=== PATIENT | female | born 1945 | race Caucasian/White ===

== ENCOUNTER 2021-11-09 15:48 | Inpatient (IN) | payer MEDICARE ==
[~2021-11-09] VITALS: Ht 170.2 cm; Wt 55.1 kg
[2021-11-09] MEDS ORDERED: DILTIAZEM 50MG VIAL IV ONE (16:23)
[2021-11-09 16:24] LABS: BASOPHILS % (AUTO) 0.2 % (0.0-5.0); EOSINOPHILS % (AUTO) 0.3 % (0.0-8.0); HEMATOCRIT 31.3 % (36-48); LYMPHOCYTES % (AUTO) 7.8 % (21.0-51.0); MEAN CORPUSCULAR HEMOGLOBIN 26.9 pg (27.0-33.0); MEAN CORPUSCULAR HGB CONC 31.9 g/dL (32.0-36.0); MEAN CORPUSCULAR VOLUME 84.1 fL (79-99); PLATELET COUNT (AUTO) 366 K/uL (130-400); RED BLOOD CELL COUNT(AUTO) 3.72 MIL/uL (4.00-5.50); RED CELL DISTRIBUTION WIDTH 17.1 % (11.0-15.5); WHITE BLOOD COUNT (AUTO) 11.8 K/uL (4.8-10.8)
[2021-11-09] MEDS ORDERED: DILTIAZEM 125MG+100 ML NS 125 ML IV PRN (16:30)
[2021-11-09] MEDS ORDERED: DILTIAZEM 25MG INJ IVP ONE (16:30)
[2021-11-09] MEDS ORDERED: DILTIAZEM 25MG INJ IVP PRN (16:30)
[2021-11-09 16:44] LABS: CREATININE 1.2 mg/dL (0.5-1.5); POTASSIUM 4.3 mmol/L (3.5-5.1)
[2021-11-09 16:53] LABS: ALBUMIN 2.3 g/dL (3.5-5.0); BILIRUBIN,TOTAL 0.5 mg/dL (0.2-1.0); TOTAL PROTEIN, SERUM 8.9 g/dL (6.0-8.3)
[2021-11-09] MEDS ORDERED: 0.9%NACL 1000ML 1,000 ML IV ONE (17:00)
[2021-11-09] MEDS ORDERED: ASPIRIN 325MG EC TAB PO ONE (17:30)
[2021-11-09 17:35] LABS: APPEARANCE,URINE Cloudy (CLEAR); BILIRUBIN,URINE Negative (NEGATIVE); COLOR,URINE Dark Yellow (YELLOW); GLUCOSE, URINE (UA) Negative (NEGATIVE); KETONES,URINE Negative (NEGATIVE); LEUKOCYTE ESTERASE ,URINE Moderate (NEGATIVE); NITRATE,URINE Positive (NEGATIVE); OCCULT BLOOD,URINE Negative (NEGATIVE); PH,URINE 5.5 (5.0-8.0); PROTEIN,URINE POS 1+ mg/dL (NEGATIVE)
[2021-11-09] MEDS ORDERED: CEFTRIAXONE 1G VIAL IVP SCH (18:00)
[2021-11-09] MEDS: 0.9% NACL 500ML IV.SOLN 500 ML IV SCH (18:02)
[2021-11-09 18:43] LABS: RBC,URINE 0-1 /HPF (0-1)
[2021-11-09 18:44] LABS: BACTERIA,URINE Moderate /HPF (None Seen); SQUAMOUS EPITHELIAL CELL,UR Few /HPF (0-2)
[2021-11-09] MEDS ORDERED: THIAMINE HCL 100 MG/ML 2ML VIAL IVP SCH (19:00)
[2021-11-09] MEDS ORDERED: 0.9%NACL 1000ML 1,000 ML IV SCH (19:30)
[2021-11-09] MEDS: BUDESONIDE 0.5 MG/2 ML INH IH SCH (19:49)
[2021-11-09] MEDS: IPRATROPIUM 0.5 MG/2.5 ML INH IH PRN (19:49)
[2021-11-09] MEDS ORDERED: 0.9%NACL 50ML 50 ML IV ONE (19:58)
[2021-11-09 19:59] LABS: AMPHET/METH SCREEN,URINE NEGATIVE (NEGATIVE); BARBITURATE SCREEN, URINE NEGATIVE (NEGATIVE); BENZODIAZEPINES SCREEN,URINE NEGATIVE (NEGATIVE); CANNABINOID SCREEN,URINE NEGATIVE (NEGATIVE); COCAINE SCREEN,URINE NEGATIVE (NEGATIVE); OPIATE SCREEN,URINE NEGATIVE (NEGATIVE); PHENCYCLIDINE SCREEN,URINE NEGATIVE (NEGATIVE)
[2021-11-09] MEDS: ZOSYN 3.375GM +NS 50ML IV SCH (19:59)
[2021-11-09] MEDS ORDERED: VANCOMYCIN PROTOCOL PER PHARMACY IV SCH (20:00)
[2021-11-09] MEDS ORDERED: DIGOXIN 250 MCG/ML 2ML AMP ONE (20:47)
[2021-11-09] MEDS ORDERED: METOPROLOL TARTRATE 25 MG TAB ONE (20:47)
[2021-11-09] MEDS ORDERED: METOPROLOL TARTRATE 25 MG TAB PO SCH (21:00)
[2021-11-09] MEDS ORDERED: DIGOXIN 250 MCG/ML 2ML AMP IV SCH (22:00)
[2021-11-09] MEDS ORDERED: PANTOPRAZOLE 40 MG TAB DR PO SCH (22:00)
[2021-11-09] MEDS ORDERED: SODIUM CHLORIDE 3% FOR INHALATION 4 ML/AMP VIAL.NEB IH ONE (22:08)
[2021-11-09] MEDS ORDERED: 0.9% NACL 250ML 250 ML ONE (22:21)
[2021-11-09] MEDS: DOXYCYCLINE HYCLATE 100 MG TABLET PO SCH (22:24)
[2021-11-09] MEDS ORDERED: VANCOMYCIN 1G/250ML KIT 250 ML IV ONE (22:30)
[2021-11-10] VITALS (33 sets, daily range): BP systolic 47–141; BP diastolic 25–80
[2021-11-10] MEDS: 0.9% NACL 500ML IV.SOLN 500 ML IV SCH (02:25)
[2021-11-10] MEDS ORDERED: 0.9%NACL 50ML 50 ML IV ONE (03:11)
[2021-11-10] MEDS: ZOSYN 3.375GM +NS 50ML IV SCH ×3 (03:12→18:07)
[2021-11-10] MEDS ORDERED: DOBUTAMINE 250MG/D5 250ML 250 ML IV PRN (06:00)
[2021-11-10] MEDS ORDERED: NOREPINEPHRIN 4MG/NS 250ML 250 ML IV ONE (06:14)
[2021-11-10 06:26] LABS: BASOPHILS % (AUTO) 0.4 % (0.0-5.0); EOSINOPHILS % (AUTO) 0.9 % (0.0-8.0); HEMATOCRIT 32.6 % (36-48); LYMPHOCYTES % (AUTO) 10.7 % (21.0-51.0); MEAN CORPUSCULAR HEMOGLOBIN 26.8 pg (27.0-33.0); MEAN CORPUSCULAR HGB CONC 31.3 g/dL (32.0-36.0); MEAN CORPUSCULAR VOLUME 85.6 fL (79-99); MONOCYTES % (AUTO) 7.5 % (3.0-13.0); NEUTROPHILS % (AUTO) 79.5 % (40.0-77.0); PLATELET COUNT (AUTO) 353 K/uL (130-400); RED BLOOD CELL COUNT(AUTO) 3.81 MIL/uL (4.00-5.50); RED CELL DISTRIBUTION WIDTH 17.4 % (11.0-15.5); WHITE BLOOD COUNT (AUTO) 9.4 K/uL (4.8-10.8)
[2021-11-10] MEDS ORDERED: NOREPINEPHRIN 4MG/NS 250ML 250 ML IV SCH (06:30)
[2021-11-10 06:39] LABS: ALBUMIN 1.7 g/dL (3.5-5.0); BILIRUBIN,TOTAL 0.3 mg/dL (0.2-1.0); MAGNESIUM 2.4 mg/dL (1.80-2.40); POTASSIUM 4.1 mmol/L (3.5-5.1); TOTAL PROTEIN, SERUM 7.2 g/dL (6.0-8.3)
[2021-11-10 06:47] LABS: CRP QUANTITATIVE 171.1 mg/L (0.00-9.0)
[2021-11-10] MEDS: BUDESONIDE 0.5 MG/2 ML INH IH SCH ×2 (06:53→18:56)
[2021-11-10] MEDS: IPRATROPIUM 0.5 MG/2.5 ML INH IH PRN ×2 (06:53→11:28)
[2021-11-10] MEDS: Vitamin B Complex/Vit C/Folic Acid PO SCH (08:56)
[2021-11-10] MEDS: FOLIC ACID 1 MG TABLET PO SCH (08:56)
[2021-11-10] MEDS: PANTOPRAZOLE 40 MG TAB DR PO SCH (08:56)
[2021-11-10] MEDS: ENOXAPARIN SODIUM 40 MG/0.4 ML SYRINGE SQ SCH (08:57)
[2021-11-10] MEDS: DOXYCYCLINE HYCLATE 100 MG TABLET PO SCH ×2 (08:58→21:35)
[2021-11-10] MEDS: PHENYLEPHRINE HCL 50 MG in 0.9% NACL 250ML 245 ML IV PRN (10:26)
[2021-11-10] MEDS ORDERED: SODIUM CHLORIDE 3% FOR INHALATION 4 ML/AMP VIAL.NEB IH ONE ×3 (11:42→23:25)
[2021-11-10] MEDS ORDERED: LACTATED RINGERS IV SCH (12:30)
[2021-11-10] MEDS ORDERED: PHARMACY COMMUNICATION MISC SCH (12:30)
[2021-11-10] MEDS: MIDODRINE HCL 5 MG TABLET PO SCH ×2 (13:25→21:35)
[2021-11-10] MEDS ORDERED: IOHEXOL-350 75 ML VIAL IV ONE (14:23)
[2021-11-10 20:25] LABS: INR 1.06 (0.85-1.15); PROTHROMBIN TIME 11.5 SEC (9.6-11.6)
[2021-11-10] MEDS: VANCOMYCIN 1G/250ML KIT 250 ML IV SCH (21:37)
[2021-11-11] VITALS (38 sets, daily range): BP systolic 22–163; BP diastolic 16–99
[2021-11-11] MEDS: ZOSYN 3.375GM +NS 50ML IV SCH ×3 (02:28→18:23)
[2021-11-11] MEDS: PHENYLEPHRINE HCL 50 MG in 0.9% NACL 250ML 245 ML IV PRN (02:48)
[2021-11-11 03:38] LABS: HEMATOCRIT 32.9 % (36-48); MEAN CORPUSCULAR HEMOGLOBIN 27.9 pg (27.0-33.0); MEAN CORPUSCULAR HGB CONC 33.1 g/dL (32.0-36.0); MEAN CORPUSCULAR VOLUME 84.1 fL (79-99); RED BLOOD CELL COUNT(AUTO) 3.91 MIL/uL (4.00-5.50); RED CELL DISTRIBUTION WIDTH 17.7 % (11.0-15.5); WHITE BLOOD COUNT (AUTO) 11.5 K/uL (4.8-10.8)
[2021-11-11 03:48] LABS: CREATININE 1.1 mg/dL (0.5-1.5); CRP QUANTITATIVE 99.6 mg/L (0.00-9.0); POTASSIUM 3.9 mmol/L (3.5-5.1)
[2021-11-11 04:28] LABS: HEPATITIS B CORE IGM ANTIBODY Non-Reactive (Negative)
[2021-11-11] MEDS ORDERED: SODIUM CHLORIDE 3% FOR INHALATION 4 ML/AMP VIAL.NEB IH ONE (06:22)
[2021-11-11] MEDS: BUDESONIDE 0.5 MG/2 ML INH IH SCH ×2 (06:30→18:00)
[2021-11-11] MEDS: DOXYCYCLINE HYCLATE 100 MG TABLET PO SCH ×2 (08:51→19:45)
[2021-11-11] MEDS: Vitamin B Complex/Vit C/Folic Acid PO SCH (08:51)
[2021-11-11] MEDS: MIDODRINE HCL 5 MG TABLET PO SCH ×3 (08:51→19:45)
[2021-11-11] MEDS: FOLIC ACID 1 MG TABLET PO SCH (08:51)
[2021-11-11] MEDS: PANTOPRAZOLE 40 MG TAB DR PO SCH (08:52)
[2021-11-11] MEDS: ENOXAPARIN SODIUM 40 MG/0.4 ML SYRINGE SQ SCH (08:52)
[2021-11-11] MEDS ORDERED: DIGOXIN 250 MCG/ML 2ML AMP IV SCH ×2 (09:25→15:30)
[2021-11-11] MEDS: LEVOTHYROXINE 25 MCG TABLET PO SCH (14:50)
[2021-11-11] MEDS: VANCOMYCIN 1G/250ML KIT 250 ML IV SCH (19:45)
[2021-11-11] MEDS: DIGOXIN 250 MCG/ML 2ML AMP IV SCH (20:16)
[2021-11-11] MEDS ORDERED: DOPAMINE 800MG/D5 250ML 250 ML IV ONE (20:27)
[2021-11-11] MEDS ORDERED: DOPAMINE 800MG/D5 250ML 250 ML IV PRN (20:30)
[2021-11-12] VITALS (50 sets, daily range): BP systolic 74–149; BP diastolic 35–80
[2021-11-12] MEDS: ZOSYN 3.375GM +NS 50ML IV SCH ×3 (03:17→18:44)
[2021-11-12 04:21] LABS: BASOPHILS % (AUTO) 0.6 % (0.0-5.0); EOSINOPHILS % (AUTO) 1.3 % (0.0-8.0); HEMATOCRIT 35.1 % (36-48); LYMPHOCYTES % (AUTO) 11.2 % (21.0-51.0); MEAN CORPUSCULAR HEMOGLOBIN 26.7 pg (27.0-33.0); MEAN CORPUSCULAR HGB CONC 31.6 g/dL (32.0-36.0); MEAN CORPUSCULAR VOLUME 84.4 fL (79-99); MONOCYTES % (AUTO) 7.4 % (3.0-13.0); NEUTROPHILS % (AUTO) 78.3 % (40.0-77.0); PLATELET COUNT (AUTO) 483 K/uL (130-400); RED BLOOD CELL COUNT(AUTO) 4.16 MIL/uL (4.00-5.50); RED CELL DISTRIBUTION WIDTH 17.2 % (11.0-15.5)
[2021-11-12 04:51] LABS: ALBUMIN 1.8 g/dL (3.5-5.0); BILIRUBIN,TOTAL 0.4 mg/dL (0.2-1.0); CREATININE 1.2 mg/dL (0.5-1.5); TOTAL PROTEIN, SERUM 7.3 g/dL (6.0-8.3)
[2021-11-12] MEDS: BUDESONIDE 0.5 MG/2 ML INH IH SCH ×2 (06:43→19:00)
[2021-11-12] MEDS: Vitamin B Complex/Vit C/Folic Acid PO SCH (08:25)
[2021-11-12] MEDS: DOXYCYCLINE HYCLATE 100 MG TABLET PO SCH ×2 (08:25→21:30)
[2021-11-12] MEDS: PANTOPRAZOLE 40 MG TAB DR PO SCH (08:25)
[2021-11-12] MEDS: ENOXAPARIN SODIUM 40 MG/0.4 ML SYRINGE SQ SCH (08:25)
[2021-11-12] MEDS: FOLIC ACID 1 MG TABLET PO SCH (08:25)
[2021-11-12] MEDS: MIDODRINE HCL 5 MG TABLET PO SCH ×3 (08:25→21:31)
[2021-11-12] MEDS: LEVOTHYROXINE 25 MCG TABLET PO SCH (13:11)
[2021-11-12] MEDS: DIGOXIN 250 MCG/ML 2ML AMP IV SCH (21:15)
[2021-11-12] MEDS: VANCOMYCIN 1G/250ML KIT 250 ML IV SCH (21:30)
[2021-11-13] VITALS (16 sets, daily range): BP systolic 79–167; BP diastolic 32–102
[2021-11-13] MEDS ORDERED: 0.9%NACL 50ML 50 ML IV ONE (03:13)
[2021-11-13] MEDS: ZOSYN 3.375GM +NS 50ML IV SCH ×3 (03:15→17:51)
[2021-11-13 03:54] LABS: BASOPHILS % (AUTO) 0.6 % (0.0-5.0); HEMATOCRIT 26.2 % (36-48); LYMPHOCYTES % (AUTO) 14.1 % (21.0-51.0); MEAN CORPUSCULAR HEMOGLOBIN 26.2 pg (27.0-33.0); MEAN CORPUSCULAR HGB CONC 30.9 g/dL (32.0-36.0); MEAN CORPUSCULAR VOLUME 84.8 fL (79-99); MONOCYTES % (AUTO) 7.4 % (3.0-13.0); NEUTROPHILS % (AUTO) 75.8 % (40.0-77.0); PLATELET COUNT (AUTO) 381 K/uL (130-400); RED BLOOD CELL COUNT(AUTO) 3.09 MIL/uL (4.00-5.50); RED CELL DISTRIBUTION WIDTH 17.4 % (11.0-15.5); WHITE BLOOD COUNT (AUTO) 8.2 K/uL (4.8-10.8)
[2021-11-13 04:09] LABS: ALBUMIN 1.5 g/dL (3.5-5.0); BILIRUBIN,TOTAL 0.3 mg/dL (0.2-1.0); CREATININE 1.1 mg/dL (0.5-1.5); CRP QUANTITATIVE 40.8 mg/L (0.00-9.0)
[2021-11-13 04:23] LABS: B-TYPE NATRIURETIC PEPTIDE 1540 pg/mL (0-100)
[2021-11-13] MEDS: BUDESONIDE 0.5 MG/2 ML INH IH SCH ×2 (06:25→18:36)
[2021-11-13] MEDS: MIDODRINE HCL 5 MG TABLET PO SCH ×3 (08:57→20:51)
[2021-11-13] MEDS: DOXYCYCLINE HYCLATE 100 MG TABLET PO SCH ×2 (08:57→20:51)
[2021-11-13] MEDS: LEVOTHYROXINE 25 MCG TABLET PO SCH (08:57)
[2021-11-13] MEDS: FOLIC ACID 1 MG TABLET PO SCH (08:57)
[2021-11-13] MEDS: Vitamin B Complex/Vit C/Folic Acid PO SCH (08:57)
[2021-11-13] MEDS: PANTOPRAZOLE 40 MG TAB DR PO SCH (08:57)
[2021-11-13] MEDS: ENOXAPARIN SODIUM 40 MG/0.4 ML SYRINGE SQ SCH (08:59)
[2021-11-13] MEDS: VANCOMYCIN 1G/250ML KIT 250 ML IV SCH (20:51)
[2021-11-13] MEDS: DIGOXIN 250 MCG/ML 2ML AMP IV SCH (20:51)
[2021-11-13] MEDS ORDERED: PHENYLEPHRINE HCL 10 MG/ML 1ML VIAL IV ONE (23:53)
[2021-11-14] VITALS (20 sets, daily range): BP systolic 83–145; BP diastolic 51–90
[2021-11-14] MEDS: PHENYLEPHRINE HCL 50 MG in 0.9% NACL 250ML 245 ML IV PRN (00:09)
[2021-11-14] MEDS: ZOSYN 3.375GM +NS 50ML IV SCH ×3 (03:13→20:13)
[2021-11-14] MEDS: LEVOTHYROXINE 25 MCG TABLET PO SCH (06:21)
[2021-11-14] MEDS: BUDESONIDE 0.5 MG/2 ML INH IH SCH ×2 (06:40→18:49)
[2021-11-14] MEDS: DOXYCYCLINE HYCLATE 100 MG TABLET PO SCH ×2 (09:47→20:15)
[2021-11-14] MEDS: MIDODRINE HCL 5 MG TABLET PO SCH ×3 (09:47→20:14)
[2021-11-14] MEDS: Vitamin B Complex/Vit C/Folic Acid PO SCH (09:47)
[2021-11-14] MEDS: FOLIC ACID 1 MG TABLET PO SCH (09:47)
[2021-11-14] MEDS: PANTOPRAZOLE 40 MG TAB DR PO SCH (09:47)
[2021-11-14] MEDS: ENOXAPARIN SODIUM 40 MG/0.4 ML SYRINGE SQ SCH (09:50)
[2021-11-14] MEDS: VANCOMYCIN 1G/250ML KIT 250 ML IV SCH (20:30)
[2021-11-14] MEDS: DIGOXIN 250 MCG/ML 2ML AMP IV SCH (21:16)
[2021-11-15] VITALS (50 sets, daily range): BP systolic 66–148; BP diastolic 34–90
[2021-11-15] MEDS: ZOSYN 3.375GM +NS 50ML IV SCH ×3 (03:18→18:23)
[2021-11-15 03:48] LABS: BASOPHILS % (AUTO) 0.5 % (0.0-5.0); EOSINOPHILS % (AUTO) 0.9 % (0.0-8.0); LYMPHOCYTES % (AUTO) 9.5 % (21.0-51.0); MEAN CORPUSCULAR HEMOGLOBIN 26.9 pg (27.0-33.0); MEAN CORPUSCULAR HGB CONC 32.1 g/dL (32.0-36.0); MEAN CORPUSCULAR VOLUME 83.8 fL (79-99); MONOCYTES % (AUTO) 6.6 % (3.0-13.0); NEUTROPHILS % (AUTO) 81.7 % (40.0-77.0); PLATELET COUNT (AUTO) 318 K/uL (130-400); RED BLOOD CELL COUNT(AUTO) 3.34 MIL/uL (4.00-5.50); RED CELL DISTRIBUTION WIDTH 17.4 % (11.0-15.5); WHITE BLOOD COUNT (AUTO) 9.7 K/uL (4.8-10.8)
[2021-11-15 04:05] LABS: ALBUMIN 1.5 g/dL (3.5-5.0); BILIRUBIN,TOTAL 0.3 mg/dL (0.2-1.0); CREATININE 0.9 mg/dL (0.5-1.5); POTASSIUM 3.2 mmol/L (3.5-5.1); TOTAL PROTEIN, SERUM 6.5 g/dL (6.0-8.3)
[2021-11-15 04:11] LABS: INR 1.08 (0.85-1.15); PROTHROMBIN TIME 11.7 SEC (9.6-11.6)
[2021-11-15] MEDS: LEVOTHYROXINE 50 MCG TABLET PO SCH (05:47)
[2021-11-15] MEDS: BUDESONIDE 0.5 MG/2 ML INH IH SCH ×2 (06:30→18:08)
[2021-11-15] MEDS: KCL 20 MEQ ERTAB PO SCH (07:30)
[2021-11-15] MEDS ORDERED: LIDOCAINE HCL-MPF 1% 2ML VIAL IV PRN (08:30)
[2021-11-15] MEDS: Vitamin B Complex/Vit C/Folic Acid PO SCH (08:30)
[2021-11-15] MEDS: FOLIC ACID 1 MG TABLET PO SCH (08:30)
[2021-11-15] MEDS ORDERED: POTASSIUM CHLORIDE 10% ELIXIR 20 MEQ/15 ML UDCUP PO PRN (08:30)
[2021-11-15] MEDS: ENOXAPARIN SODIUM 40 MG/0.4 ML SYRINGE SQ SCH (08:31)
[2021-11-15] MEDS: PANTOPRAZOLE 40 MG TAB DR PO SCH (08:31)
[2021-11-15] MEDS: POTASSIUM CHLORIDE 20MEQ/100ML 100 ML IV PRN ×3 (08:48→14:30)
[2021-11-15] MEDS: MIDODRINE HCL 5 MG TABLET PO SCH ×3 (08:48→20:28)
[2021-11-15] MEDS: DOXYCYCLINE HYCLATE 100 MG TABLET PO SCH ×2 (08:48→20:28)
[2021-11-15] MEDS ORDERED: 0.9%NACL 1000ML 1,000 ML IV ONE (10:56)
[2021-11-15] MEDS ORDERED: ENOXAPARIN SODIUM 40 MG/0.4 ML SYRINGE SQ SCH (14:00)
[2021-11-15] MEDS: NOREPINEPHRIN 4MG/NS 250ML 250 ML IV SCH ×2 (14:43→22:05)
[2021-11-15 20:16] LABS: MAGNESIUM 1.4 mg/dL (1.80-2.40); POTASSIUM 3.9 mmol/L (3.5-5.1)
[2021-11-15] MEDS: 0.9% NACL 250ML 250 ML IV SCH (20:29)
[2021-11-15] MEDS: VANCOMYCIN 750MG VIAL IVPB SCH (20:29)
[2021-11-15] MEDS: DIGOXIN 250 MCG/ML 2ML AMP IV SCH (20:29)
[2021-11-15] MEDS ORDERED: HYDROXYZINE 25 MG TABLET PO ONE (21:30)
[2021-11-16] VITALS (50 sets, daily range): BP systolic 86–170; BP diastolic 38–88
[2021-11-16] MEDS: ZOSYN 3.375GM +NS 50ML IV SCH ×3 (02:09→20:24)
[2021-11-16 04:13] LABS: BASOPHILS % (AUTO) 0.5 % (0.0-5.0); EOSINOPHILS % (AUTO) 0.6 % (0.0-8.0); MEAN CORPUSCULAR HEMOGLOBIN 27.5 pg (27.0-33.0); MEAN CORPUSCULAR HGB CONC 32.4 g/dL (32.0-36.0); MEAN CORPUSCULAR VOLUME 84.8 fL (79-99); MONOCYTES % (AUTO) 5.7 % (3.0-13.0); NEUTROPHILS % (AUTO) 82.5 % (40.0-77.0); PLATELET COUNT (AUTO) 339 K/uL (130-400); RED BLOOD CELL COUNT(AUTO) 3.42 MIL/uL (4.00-5.50); RED CELL DISTRIBUTION WIDTH 18.2 % (11.0-15.5); WHITE BLOOD COUNT (AUTO) 11.1 K/uL (4.8-10.8)
[2021-11-16 04:26] LABS: INR 1.1 (0.85-1.15); PROTHROMBIN TIME 11.9 SEC (9.6-11.6)
[2021-11-16 04:27] LABS: PARTIAL THROMBOPLASTIN TIME 28.7 SEC (26.3-35.5)
[2021-11-16 04:53] LABS: ALBUMIN 1.5 g/dL (3.5-5.0); BILIRUBIN,TOTAL 0.3 mg/dL (0.2-1.0); MAGNESIUM 1.3 mg/dL (1.80-2.40); PHOSPHORUS 3.2 mg/dL (2.5-4.9); POTASSIUM 3.5 mmol/L (3.5-5.1); TOTAL PROTEIN, SERUM 6.7 g/dL (6.0-8.3)
[2021-11-16] MEDS: LEVOTHYROXINE 50 MCG TABLET PO SCH (06:13)
[2021-11-16] MEDS: KCL 20 MEQ ERTAB PO SCH (06:16)
[2021-11-16] MEDS: BUDESONIDE 0.5 MG/2 ML INH IH SCH ×2 (06:25→21:29)
[2021-11-16] MEDS: MAGNESIUM 2GM PREMIX 50ML 50 ML IV SCH ×2 (07:43→10:28)
[2021-11-16] MEDS: DOXYCYCLINE HYCLATE 100 MG TABLET PO SCH ×2 (08:09→20:22)
[2021-11-16] MEDS: MIDODRINE HCL 5 MG TABLET PO SCH ×3 (08:09→20:22)
[2021-11-16] MEDS: Vitamin B Complex/Vit C/Folic Acid PO SCH (08:10)
[2021-11-16] MEDS: PANTOPRAZOLE 40 MG TAB DR PO SCH (08:10)
[2021-11-16] MEDS: FOLIC ACID 1 MG TABLET PO SCH (08:10)
[2021-11-16] MEDS: ENOXAPARIN SODIUM 40 MG/0.4 ML SYRINGE SQ SCH (08:12)
[2021-11-16] MEDS ORDERED: ATROPINE 1MG SYG IVP ONE ×2 (13:13→13:21)
[2021-11-16] MEDS ORDERED: KETAMINE 50MG/ML SYRINGE 50 MG/ML DISP.SYRIN IV ONE (13:13)
[2021-11-16] MEDS ORDERED: GLYCOPYRROLATE 1 MG/5 ML SYRINGE ONE (13:13)
[2021-11-16] MEDS ORDERED: SUCCINYLCHOLINE CHLORIDE 20 MG/ML 10 ML VIAL ONE (13:13)
[2021-11-16] MEDS ORDERED: PROPOFOL 10 MG/ML 20ML VIAL IV ONE (13:13)
[2021-11-16] MEDS ORDERED: LIDOCAINE PF 100MG/5ML (2%) SYRINGE 5ML ONE (13:13)
[2021-11-16] MEDS ORDERED: SUCCINYLCHOLINE 200MG/10ML SYR ONE (13:21)
[2021-11-16] MEDS ORDERED: ACETAMINOPHEN 325 MG TAB PO PRN (15:30)
[2021-11-16] MEDS: VANCOMYCIN 750MG VIAL IVPB SCH (20:22)
[2021-11-16] MEDS: 0.9% NACL 250ML 250 ML IV SCH (20:23)
[2021-11-17] VITALS (15 sets, daily range): BP systolic 117–160; BP diastolic 48–89
[2021-11-17] MEDS: ZOSYN 3.375GM +NS 50ML IV SCH ×2 (02:38→11:26)
[2021-11-17 03:49] LABS: BASOPHILS % (AUTO) 0.4 % (0.0-5.0); HEMATOCRIT 28.1 % (36-48); LYMPHOCYTES % (AUTO) 14.5 % (21.0-51.0); MEAN CORPUSCULAR HEMOGLOBIN 26.4 pg (27.0-33.0); MEAN CORPUSCULAR HGB CONC 31.3 g/dL (32.0-36.0); MEAN CORPUSCULAR VOLUME 84.4 fL (79-99); MONOCYTES % (AUTO) 7.7 % (3.0-13.0); NEUTROPHILS % (AUTO) 74.7 % (40.0-77.0); PLATELET COUNT (AUTO) 267 K/uL (130-400); RED BLOOD CELL COUNT(AUTO) 3.33 MIL/uL (4.00-5.50); RED CELL DISTRIBUTION WIDTH 18.3 % (11.0-15.5); WHITE BLOOD COUNT (AUTO) 7.5 K/uL (4.8-10.8)
[2021-11-17 04:03] LABS: ALBUMIN 1.3 g/dL (3.5-5.0); BILIRUBIN,TOTAL 0.3 mg/dL (0.2-1.0); CREATININE 0.9 mg/dL (0.5-1.5); POTASSIUM 3.8 mmol/L (3.5-5.1)
[2021-11-17] MEDS: LEVOTHYROXINE 50 MCG TABLET PO SCH (06:08)
[2021-11-17] MEDS: BUDESONIDE 0.5 MG/2 ML INH IH SCH (06:50)
[2021-11-17 08:02] LABS: RETICULOCYTE % (AUTO) 1.8 % (0.42-2.23)
[2021-11-17] MEDS: MIDODRINE HCL 5 MG TABLET PO SCH (09:00)
[2021-11-17] MEDS: ENOXAPARIN SODIUM 40 MG/0.4 ML SYRINGE SQ SCH (09:14)
[2021-11-17] MEDS: DOXYCYCLINE HYCLATE 100 MG TABLET PO SCH (09:14)
[2021-11-17] MEDS: FOLIC ACID 1 MG TABLET PO SCH (09:14)
[2021-11-17] MEDS: Vitamin B Complex/Vit C/Folic Acid PO SCH (09:14)
[2021-11-17] MEDS: PANTOPRAZOLE 40 MG TAB DR PO SCH (09:14)
== END 2021-11-17 15:00 | DRG 871 ==
LOC: EDH 15:48 → EDHIP 19:19 → 2CH 11-10 03:08 → 3CH 11-17 08:42
PROVIDERS: ADMIT Internal Medicine; ATTEND Internal Medicine
PROC: 02HV33Z Insertion of Infusion Device into Superior Vena Cava, Percutaneous Approach (ICD-10-PCS; 2021-11-09)
PROC: 0B9C7ZX Drainage of Right Upper Lung Lobe, Via Natural or Artificial Opening, Diagnostic (ICD-10-PCS; principal; 2021-11-16)
PROC: 0BH17EZ Insertion of Endotracheal Airway into Trachea, Via Natural or Artificial Opening (ICD-10-PCS; 2021-11-16)
DX: A41.9 Sepsis, unspecified organism (principal); E43 Unspecified severe protein-calorie malnutrition; J96.01 Acute respiratory failure with hypoxia; R65.21 Severe sepsis with septic shock; J15.6 Pneumonia due to other Gram-negative bacteria; I21.4 Non-ST elevation (NSTEMI) myocardial infarction; N17.9 Acute kidney failure, unspecified; Z68.1 Body mass index [BMI] 19.9 or less, adult; N39.0 Urinary tract infection, site not specified; Z20.822 Contact with and (suspected) exposure to COVID-19; I48.91 Unspecified atrial fibrillation; E78.5 Hyperlipidemia, unspecified; I10 Essential (primary) hypertension; E03.9 Hypothyroidism, unspecified; D64.9 Anemia, unspecified; J84.10 Pulmonary fibrosis, unspecified; R53.81 Other malaise; B96.20 Unspecified Escherichia coli [E. coli] as the cause of diseases classified elsewhere; I48.0 Paroxysmal atrial fibrillation; Z90.49 Acquired absence of other specified parts of digestive tract; Z79.899 Other long term (current) drug therapy; Z87.891 Personal history of nicotine dependence
CPT/HCPCS: 31623; 31624; 36415; 70450; 71045; 71250; 71260; 76000; 80048; 80053; 80202; 80305; 81001; 82533; 82550; 82595; 82607; 82728; 82746; 82785; 82948; 83540; 83550; 83605; 83735; 83874; 83880; 83930; 84100; 84132; 84145; 84439; 84443; 84481; 84484; 85025; 85027; 85045; 85610; 85651; 85730; 86140; 86147; 86255; 86705; 87040; 87071; 87077; 87088; 87101; 87116; 87186; 87205; 87206; 87522; 87635; 87804; 92610; 93005; 93306; 93356; 93970; 94640; 94664; 97039; A4606; C1751; C1894; G0378; J0330; J0461; J0696; J1160; J1250; J1265; J1650; J2001; J2370; J2543; J2704; J3370; J3411; J3475; J3480; J3490; J7030; J7050; J7120; Q9967